=== PATIENT | male | born 1950 | race Caucasian/White ===

== ENCOUNTER 2019-11-05 10:04 | Inpatient (IN) ==
[2019-11-05 10:39] LABS: Hematocrit 35.2 % (37.5-50.1); Hemoglobin 11.1 g/dL (12.9-16.9); Mean Corpuscular HGB Conc 31.5 g/dL (31.6-35.5); Mean Corpuscular Hemoglobin 26.5 pg (28.0-33.3); Platelet Count 192 K/mcL (140-400); Red Blood Count 4.19 M/mcL (4.19-5.50); White Blood Count 8.3 K/mcL (4.3-11.1)
[2019-11-05 11:00] LABS: Bilirubin,Urine Negative (Negative); Blood,Urine Moderate (Negative); Clarity,Urine Cloudy (Clear); Color,Urine Yellow (Yellow); Glucose,Urine (UA) Normal (Normal); Ketones,Urine Negative (Negative); Leukocyte Esterase,Urine Moderate (Negative); Nitrite,Urine Negative (Negative); PH,Urine 5.5 pH Units (5.0-8.0); Protein,Urine Trace mg/dL (Neg-Trace); Specific Gravity,Urine 1.015 (1.010-1.025); Urobilinogen,Urine Normal (Normal)
[2019-11-05 11:02] LABS: Alanine Aminotransferase 14 Units/L (7-52); Albumin 3.9 g/dL (3.5-5.7); Albumin/Globulin Ratio 1.3 (1.1-2.2); Alkaline Phosphatase 122 Units/L (34-104); Aspartate Amino Transferase 13 Units/L (13-39); BUN/Creatinine Ratio 28 (6-26); Bilirubin,Total 0.3 mg/dL (0.3-1.0); Blood Urea Nitrogen 104 mg/dL (8-23); Calcium 9.2 mg/dL (8.6-10.3); Carbon Dioxide 22 mEq/L (23-29); Chloride 107 mEq/L (98-107); Globulin 2.9 g/dL (2.4-3.5); Glucose 131 mg/dL (70-105); Magnesium 1.8 mg/dL (1.6-2.6); Osmolality,Calculated 322 (280-300); Potassium 4.2 mEq/L (3.5-5.1); Sodium 139 mEq/L (136-145); Total Protein 6.8 g/dL (6.4-8.9); Troponin I < 0.03 ng/mL (< 0.04); eGFR For African Americans 19 (> 60); eGFR For Non-African Americans 16 (> 60)
[2019-11-05] MEDS ORDERED: 0.9 % Sodium Chloride 1,000 ML IVC ONE (11:03)
[2019-11-05 11:11] LABS: Hyaline Casts,Urine None Seen per lpf (None-Few); Squamous Epithelial Cell,Urine Many per lpf (None-Few); WBC,Urine 30-50 per hpf (0-3)
[2019-11-05 11:33] LABS: RBC,Urine 0-3 per hpf (0-3)
[2019-11-05 11:34] LABS: Bacteria,Urine Few per hpf (None-Few)
[2019-11-05] MEDS ORDERED: Ondansetron 4 MG/2 ML VIAL IVP PRN (11:55)
[2019-11-05] MEDS ORDERED: Naloxone 0.4 MG/ML INJ IVP PRN (11:55)
[2019-11-05] MEDS ORDERED: D5% in Water 1,000 ML IVC PRN (12:07)
[2019-11-05] MEDS ORDERED: Dextrose Gel 15 GM/37.5 ML TUBE PO PRN ×2 (12:07)
[2019-11-05] MEDS ORDERED: *HR* Dextrose 50 % in Water (Syg) 50 ML SYRINGE IVP PRN (12:07)
[2019-11-05 12:58] LABS: Estimated Average Glucose 114 mg/dl
[2019-11-05] MEDS: 0.9 % Sodium Chloride 1,000 ML IVC SCH ×2 (14:01→23:03)
[2019-11-05] MEDS ORDERED: NON-FORMULARY MEDICATION 1 EACH EACH (Propranolol Hcl 40 MG) PO SCH (15:00)
[2019-11-05] MEDS: *HR* Methadone 10 MG TABLET PO SCH (15:51)
[2019-11-05] MEDS: Insulin LISPRO 300 UNITS/3 ML VIAL SQ SCH ×2 (16:40→23:02)
[2019-11-05] MEDS: Iron Polysaccharide Complex 150 MG CAPSULE PO SCH (19:24)
[2019-11-05] MEDS: Pregabalin 75 MG CAPSULE PO SCH (19:24)
[2019-11-05] MEDS ORDERED: NON-FORMULARY MEDICATION 1 EACH EACH (Pregabalin [Lyrica] 150 MG) PO SCH (21:00)
[2019-11-05] MEDS: Insulin DETEMIR 100 UNIT/ML X5UNITS SQ SCH (23:02)
[2019-11-06] MEDS: *HR* Methadone 10 MG TABLET PO SCH ×3 (00:16→16:21)
[2019-11-06 06:43] LABS: Eosinophils # 0.2 K/mcL (0.0-0.6); Hematocrit 32.6 % (37.5-50.1); Hemoglobin 9.8 g/dL (12.9-16.9); Lymphocytes # 1.4 K/mcL (0.6-4.6); Mean Corpuscular HGB Conc 30.1 g/dL (31.6-35.5); Mean Corpuscular Hemoglobin 26.3 pg (28.0-33.3); Mean Corpuscular Volume 87.4 fL (83.0-100.0); Mean Platelet Volume 10.1 fL (9.4-12.4); Platelet Count 148 K/mcL (140-400); Red Blood Count 3.73 M/mcL (4.19-5.50); Red Cell Distribution Width 15.2 % (11.5-14.5); White Blood Count 5.2 K/mcL (4.3-11.1)
[2019-11-06 06:57] LABS: Calcium 8.9 mg/dL (8.6-10.3); Magnesium 1.8 mg/dL (1.6-2.6); Phosphorous 3.2 mg/dL (2.7-4.5); Potassium 4.3 mEq/L (3.5-5.1)
[2019-11-06 07:15] LABS: Monocytes # 0.5 K/mcL (0.0-1.3); Neutrophils # 3.1 K/mcL (1.6-8.9)
[2019-11-06 07:16] LABS: Platelet Estimate Normal (Normal); Reactive Lymphocytes Present (Not Present)
[2019-11-06] MEDS ORDERED: 0.9 % Sodium Chloride 1,000 ML IVC SCH (07:45)
[2019-11-06] MEDS: Insulin LISPRO 300 UNITS/3 ML VIAL SQ SCH ×4 (08:14→21:10)
[2019-11-06] MEDS ORDERED: amLODIPine 5 MG TABLET PO SCH (09:00)
[2019-11-06] MEDS: Pregabalin 75 MG CAPSULE PO SCH ×2 (09:22→21:10)
[2019-11-06] MEDS: Iron Polysaccharide Complex 150 MG CAPSULE PO SCH ×2 (09:22→21:10)
[2019-11-06] MEDS: Insulin DETEMIR 100 UNIT/ML X5UNITS SQ SCH ×2 (09:34→21:20)
[2019-11-06] MEDS ORDERED: 0.9 % Sodium Chloride 1,000 ML IV SCH (09:54)
[2019-11-07] MEDS: *HR* Methadone 10 MG TABLET PO SCH ×2 (00:49→08:59)
[2019-11-07 02:21] LABS: Hematocrit 31.8 % (37.5-50.1); Hemoglobin 9.9 g/dL (12.9-16.9); Mean Corpuscular HGB Conc 31.1 g/dL (31.6-35.5); Mean Corpuscular Hemoglobin 26.8 pg (28.0-33.3); Mean Corpuscular Volume 85.9 fL (83.0-100.0); Mean Platelet Volume 10.1 fL (9.4-12.4); Platelet Count 157 K/mcL (140-400); Red Cell Distribution Width 15.1 % (11.5-14.5); White Blood Count 5.2 K/mcL (4.3-11.1)
[2019-11-07 02:42] LABS: Potassium 4.1 mEq/L (3.5-5.1)
[2019-11-07 06:39] VITALS: BP 135/56
[2019-11-07] MEDS: Insulin LISPRO 300 UNITS/3 ML VIAL SQ SCH (08:59)
[2019-11-07] MEDS: Iron Polysaccharide Complex 150 MG CAPSULE PO SCH (09:00)
[2019-11-07] MEDS: Pregabalin 75 MG CAPSULE PO SCH (09:00)
[2019-11-07] MEDS: Insulin DETEMIR 100 UNIT/ML X5UNITS SQ SCH (09:07)
== END 2019-11-07 09:29 | disposition home or self-care (01) | DRG 684 ==
LOC: EMEROOARM 10:04 → 2ANU 10:04 → SUATTDRO 12:49 → 2ANU 13:57
PROVIDERS: ADMIT Student in an Organized Health Care Education/Training Program; ATTEND Family Medicine

== ENCOUNTER 2020-05-15 06:17 | Inpatient (IN) ==
[2020-05-15] MEDS ORDERED: Dexamethasone 4 MG/ML VIAL ONE (06:57)
[2020-05-15] MEDS ORDERED: Ondansetron 4 MG/2 ML VIAL ONE (06:57)
[2020-05-15] MEDS ORDERED: *HR* Succinylcholine 200 MG/10 ML VIAL IVP ONE (06:57)
[2020-05-15] MEDS ORDERED: *HR* Rocuronium Bromide 50 MG/5 ML VIAL ONE ×2 (06:57→08:49)
[2020-05-15] MEDS ORDERED: Lidocaine -MPF 2% 2 ML VIAL ONE (06:57)
[2020-05-15] MEDS ORDERED: Lidocaine HCL 4 ML Topical Solution (Laryng-O-Jet Kit Sterile Pak) TP ONE (06:59)
[2020-05-15] MEDS ORDERED: *HR* Midazolam HCl 2 MG/2 ML VIAL ONE (07:00)
[2020-05-15] MEDS ORDERED: *HR* Propofol 200 MG/20 ML VIAL IVP ONE (07:00)
[2020-05-15] MEDS ORDERED: *HR* FentaNYL (PF) 100 MCG/2 ML VIAL ONE (07:00)
[2020-05-15] MEDS ORDERED: Ondansetron 4 MG/2 ML VIAL IVP ONE (07:10)
[2020-05-15] MEDS ORDERED: Famotidine 20 MG/2 ML VIAL IVP ONE (07:10)
[2020-05-15] MEDS ORDERED: *HR* HYDROmorphone PF 0.5 MG/0.5 ML SYRINGE IVP PRN (07:10)
[2020-05-15] MEDS ORDERED: *HR* Promethazine 25 MG/ML VIAL IVP PRN (07:10)
[2020-05-15] MEDS ORDERED: Acetaminophen IV 1,000 MG/100 ML INFUS..BTL IVPB ONE (07:10)
[2020-05-15] MEDS ORDERED: *HR* OxyCODONE Immed Rel 5 MG TABLET PO PRN (07:10)
[2020-05-15] MEDS ORDERED: *HR* Labetalol 20 MG/4 ML SYRINGE IVP PRN (07:10)
[2020-05-15] MEDS ORDERED: Heparin 1,000 UNITS/500 mL 500 ML ONE (07:25)
[2020-05-15] MEDS: Ringers Solution, Lactated 1,000 ML IVC SCH (07:32)
[2020-05-15] MEDS ORDERED: Clindamycin 900 MG/50 ML 900 MG/50 ML IV.SOLN IVPB ONE (07:40)
[2020-05-15] MEDS ORDERED: Mannitol 25% vial 12.5 GM/50 ML VIAL IVP ONE ×3 (07:49→11:00)
[2020-05-15] MEDS ORDERED: Naloxone 0.4 MG/ML INJ IVP PRN (12:20)
[2020-05-15] MEDS: 0.9 % Sodium Chloride 1,000 ML IVC SCH (15:33)
[2020-05-15] MEDS: Clindamycin 900 MG/50 ML 900 MG/50 ML IV.SOLN IVPB SCH ×2 (15:35→23:39)
[2020-05-15] MEDS ORDERED: CeFAZolin 2 GM/120 ML BAG IVPB SCH (16:00)
[2020-05-15] MEDS: *HR* HYDROmorphone 20 MG/20 ML PCA IVC PRN (18:05)
[2020-05-15] MEDS: Acetaminophen IV 1,000 MG/100 ML INFUS..BTL IVPB SCH ×2 (19:53→23:43)
[2020-05-16] MEDS: 0.9 % Sodium Chloride 1,000 ML IVC SCH ×2 (01:28→18:20)
[2020-05-16 04:48] LABS: Basophils % 0.1 %; Hematocrit 27.6 % (37.5-50.1); Hemoglobin 8.1 g/dL (12.9-16.9); Immature Granulocytes % 0.2 % (0-4); Lymphocytes # 0.6 K/mcL (0.6-4.6); Lymphocytes % 6.3 %; Mean Corpuscular HGB Conc 29.3 g/dL (31.6-35.5); Mean Corpuscular Hemoglobin 23.8 pg (28.0-33.3); Mean Corpuscular Volume 80.9 fL (83.0-100.0); Mean Platelet Volume 9.4 fL (9.4-12.4); Monocytes # 0.8 K/mcL (0.0-1.3); Monocytes % 7.9 %; Neutrophils # 8.6 K/mcL (1.6-8.9); Platelet Count 206 K/mcL (140-400); Red Blood Count 3.41 M/mcL (4.19-5.50); Red Cell Distribution Width 17.1 % (11.5-14.5); Segmented Neutrophils % 85.5 %; White Blood Count 10.1 K/mcL (4.3-11.1)
[2020-05-16 04:54] LABS: INR 1.3; Prothrombin Time 14.6 Seconds (9.4-12.1)
[2020-05-16] MEDS: Acetaminophen IV 1,000 MG/100 ML INFUS..BTL IVPB SCH ×4 (06:25→23:30)
[2020-05-16] MEDS: Ringers Solution, Lactated 1,000 ML IVC SCH (10:35)
[2020-05-16 16:17] LABS: BUN/Creatinine Ratio 17 (6-26); Blood Urea Nitrogen 24 mg/dL (8-23); Calcium 7.9 mg/dL (8.6-10.3); Carbon Dioxide 29 mEq/L (23-29); Chloride 102 mEq/L (98-107); Glucose 147 mg/dL (70-105); Osmolality,Calculated 293 (280-300); Potassium 4.2 mEq/L (3.5-5.1); Sodium 138 mEq/L (136-145); eGFR For African Americans > 60 (> 60); eGFR For Non-African Americans 50 (> 60)
[2020-05-17] MEDS: 0.9 % Sodium Chloride 1,000 ML IVC SCH (05:52)
[2020-05-17 06:49] LABS: Hematocrit 30.1 % (37.5-50.1); Mean Corpuscular HGB Conc 29.9 g/dL (31.6-35.5); Mean Corpuscular Hemoglobin 24.2 pg (28.0-33.3); Mean Corpuscular Volume 80.9 fL (83.0-100.0); Mean Platelet Volume 9.5 fL (9.4-12.4); Platelet Count 260 K/mcL (140-400); Red Blood Count 3.72 M/mcL (4.19-5.50); Red Cell Distribution Width 17.3 % (11.5-14.5); White Blood Count 11.5 K/mcL (4.3-11.1)
[2020-05-17 07:07] LABS: Calcium 8.4 mg/dL (8.6-10.3); Potassium 4.2 mEq/L (3.5-5.1)
[2020-05-17] MEDS: Acetaminophen IV 1,000 MG/100 ML INFUS..BTL IVPB SCH ×3 (07:46→18:30)
[2020-05-17] MEDS: *HR* HYDROmorphone 20 MG/20 ML PCA IVC PRN (11:26)
[2020-05-17] MEDS: Ringers Solution, Lactated 1,000 ML IVC SCH (14:56)
[2020-05-17] MEDS: Pregabalin 75 MG CAPSULE PO SCH ×2 (15:03→21:20)
[2020-05-17] MEDS: Loratadine 10 MG TABLET PO SCH (15:03)
[2020-05-17] MEDS: Melatonin 3 MG TABLET PO SCH (21:20)
[2020-05-18] MEDS: Acetaminophen IV 1,000 MG/100 ML INFUS..BTL IVPB SCH ×2 (00:29→06:22)
[2020-05-18] MEDS: 0.9 % Sodium Chloride 1,000 ML IVC SCH ×4 (01:55→20:22)
[2020-05-18 06:43] LABS: Basophils % 0.1 %; Eosinophils # 0.1 K/mcL (0.0-0.6); Eosinophils % 1.1 %; Hemoglobin 7.6 g/dL (12.9-16.9); Immature Granulocytes % 0.5 % (0-4); Lymphocytes # 0.8 K/mcL (0.6-4.6); Lymphocytes % 9.6 %; Mean Corpuscular HGB Conc 30.4 g/dL (31.6-35.5); Mean Corpuscular Hemoglobin 24.8 pg (28.0-33.3); Mean Corpuscular Volume 81.7 fL (83.0-100.0); Mean Platelet Volume 9.3 fL (9.4-12.4); Monocytes # 0.7 K/mcL (0.0-1.3); Monocytes % 8.4 %; Neutrophils # 6.6 K/mcL (1.6-8.9); Platelet Count 197 K/mcL (140-400); Red Blood Count 3.06 M/mcL (4.19-5.50); Red Cell Distribution Width 17.2 % (11.5-14.5); Segmented Neutrophils % 80.3 %; White Blood Count 8.2 K/mcL (4.3-11.1)
[2020-05-18] MEDS: Ringers Solution, Lactated 1,000 ML IVC SCH (06:49)
[2020-05-18 07:02] LABS: BUN/Creatinine Ratio 13 (6-26); Blood Urea Nitrogen 16 mg/dL (8-23); Calcium 8.1 mg/dL (8.6-10.3); Carbon Dioxide 27 mEq/L (23-29); Chloride 105 mEq/L (98-107); Glucose 130 mg/dL (70-105); Osmolality,Calculated 291 (280-300); Potassium 4.1 mEq/L (3.5-5.1); Sodium 139 mEq/L (136-145); eGFR For African Americans > 60 (> 60); eGFR For Non-African Americans 57 (> 60)
[2020-05-18] MEDS: Pregabalin 75 MG CAPSULE PO SCH ×2 (08:19→20:15)
[2020-05-18] MEDS: amLODIPine 5 MG TABLET PO SCH (08:19)
[2020-05-18] MEDS: Loratadine 10 MG TABLET PO SCH (08:19)
[2020-05-18] MEDS ORDERED: Acetaminophen 325 MG TABLET PO PRN (08:39)
[2020-05-18] MEDS: Melatonin 3 MG TABLET PO SCH (20:15)
[2020-05-18] MEDS: allopurinoL 100 MG TABLET PO SCH (20:15)
[2020-05-19] MEDS: *HR* HYDROmorphone 20 MG/20 ML PCA IVC PRN (02:32)
[2020-05-19 05:46] LABS: Basophils % 0.2 %; Eosinophils # 0.1 K/mcL (0.0-0.6); Eosinophils % 2.1 %; Hematocrit 23.6 % (37.5-50.1); Hemoglobin 7.1 g/dL (12.9-16.9); Immature Granulocytes % 0.7 % (0-4); Lymphocytes # 0.8 K/mcL (0.6-4.6); Mean Corpuscular HGB Conc 30.1 g/dL (31.6-35.5); Mean Corpuscular Hemoglobin 24.1 pg (28.0-33.3); Mean Corpuscular Volume 80.3 fL (83.0-100.0); Mean Platelet Volume 8.9 fL (9.4-12.4); Monocytes # 0.4 K/mcL (0.0-1.3); Monocytes % 6.8 %; Neutrophils # 4.4 K/mcL (1.6-8.9); Platelet Count 186 K/mcL (140-400); Red Blood Count 2.94 M/mcL (4.19-5.50); Red Cell Distribution Width 17.2 % (11.5-14.5); Segmented Neutrophils % 76.2 %; White Blood Count 5.8 K/mcL (4.3-11.1)
[2020-05-19 06:05] LABS: BUN/Creatinine Ratio 12 (6-26); Blood Urea Nitrogen 15 mg/dL (8-23); Calcium 7.9 mg/dL (8.6-10.3); Carbon Dioxide 29 mEq/L (23-29); Chloride 105 mEq/L (98-107); Glucose 120 mg/dL (70-105); Osmolality,Calculated 290 (280-300); Potassium 3.5 mEq/L (3.5-5.1); Sodium 139 mEq/L (136-145); eGFR For African Americans > 60 (> 60); eGFR For Non-African Americans 55 (> 60)
[2020-05-19] MEDS: Ringers Solution, Lactated 1,000 ML IVC SCH (06:42)
[2020-05-19] MEDS: Loratadine 10 MG TABLET PO SCH (08:21)
[2020-05-19] MEDS: 0.9 % Sodium Chloride 1,000 ML IVC SCH ×2 (08:21→16:06)
[2020-05-19] MEDS: allopurinoL 100 MG TABLET PO SCH (08:22)
[2020-05-19] MEDS: amLODIPine 5 MG TABLET PO SCH (08:22)
[2020-05-19] MEDS: Pregabalin 75 MG CAPSULE PO SCH (08:22)
[2020-05-19] MEDS ORDERED: 0.9 % Sodium Chloride 250 ML ONE (11:57)
[2020-05-19 16:44] VITALS: BP 180/69
== END 2020-05-19 17:45 | disposition home or self-care (01) | DRG 657 ==
LOC: SAMDAY 06:17 → 3ANU 14:24
PROVIDERS: ADMIT Urology; ATTEND Urology